=== PATIENT | female | born 1975 | race Two or more races ===

== ENCOUNTER 2025-07-12 01:52 | Emergency (ER) | payer BC, SELFPAY ==
[2025-07-12 02:44] VITALS: BP 128/90; PULSE 105; RESP 18; TEMP 36.8; O2SAT 97
[2025-07-12 02:45] VITALS: BMI 48.2
--- NOTE | 2025-07-12 02:56 | XR_ITS ---
Examination: CT abdomen and pelvis without contrast. Coronal 3-D reconstructions. Sagittal 2-D reconstructions. Date and time of exam: July 12, 2025, 0411 hours INDICATIONS: Right flank pain frequent urination onset today CTDI: vol (mGy): 19.9 DLP: (mGycm): 1215 Technique: Axial images of the abdomen have been obtained, 3 mm slice thickness Intravenous contrast material has not been administered. Low dose protocols were performed. One or more of the following dose reduction techniques were used; automated exposure control, adjustment of the mA and/or KV according to patient size, use of iterative reconstruction technique. Findings: Diffuse fatty infiltration throughout the liver, no focal liver or splenic lesions No gallstones No pancreatic or adrenal mass No renal or ureteral calculi, no hydronephrosis Aorta normal size Normal appendix Colonic diverticulosis Very minimal inflammatory change about sigmoid diverticula Contracted urinary bladder There appears to be a prostate but clinical correlation advised Osseous structures intact IMPRESSION: No renal or ureteral calculi, no hydronephrosis Normal appendix Colonic diverticulosis, with very minimal inflammatory change about the sigmoid diverticula No pelvic abscess
[2025-07-12 03:17] LABS: Collection Type, Urine Clean Catch
[2025-07-12 03:36] LABS: Amorphous Crystals,Urine Present (Absent); Bilirubin,Urine Negative (Negative); Blood,Urine 2+ (Negative); Clarity,Urine Turbid (Clear/Hazy); Color,Urine Yellow (Lt Yel-Yel); Culture Indicated,Urine Not Indicated; Glucose, Urine Negative (Negative); Ketones,Urine Negative (Negative); Leukocyte Esterase,Urine Negative (Negative); Nitrite,Urine Negative (Negative); PH,Urine 6.0 (5.0-7.0); Protein,Urine Trace (Neg - Trace); RBC,Urine 34 /hpf (0-3); Specific Gravity,Urine 1.031 (1.001-1.035); Squamous Epithelial Cell,Urine 3 /hpf (0-5); Urobilinogen,Urine Negative mg/dL (0.0-1.0); WBC,Urine 2 /hpf (0-5)
[2025-07-12 03:40] LABS: Amphetamine/Methamp Scrn,U Negative (Negative); Barbiturate Screen,Urine Negative (Negative); Benzodiazepines Screen,Urine Negative (Negative); Benzoylecgonine Screen, Ur Negative (Negative); Fentanyl Screen,Urine Negative (Negative); Opiate Screen,Urine Negative (Negative); THC Screen,Urine Negative (Negative)
--- NOTE | 2025-07-12 04:48 | EDNOTE_ITS ---
ED Female Urogenital RME/HPI General Chief complaint: Urogenital-Female Stated complaint: FREQUENCY URINATING Time Seen by Provider: 07/12/25 02:56 Arrival date/time: 07/12/25 01:52 50F with history of transgender MTF presents to ED with 2 days of R flank pain and some increased urinary frequency. No obvious dysuria. Limitations: no limitations Related Data Previous Rx's ?Medication ?Instructions ?Recorded amoxicillin 875 mg-potassium 1 tab PO BID 7 days #14 t abs 07/12/25 clavulanate 125 mg tablet tamsulosin 0.4 mg capsule 0.4 mg PO QDAY #14 caps 06/20 11/11 Allergies Allergy/AdvReac Type Severity Reaction Status Date / Time No Known Allergies Allergy Verified 07/12/25 01:54 Review of Systems Review of Systems Systems Reviewed: All systems reviewed, normal except as documented Genitourinary Genitourinary: Reports as per HPI, Reports difficulty voiding, Reports flank pain and Reports urinary urgency Past Medical History Social History SMOKING STATUS: Former smoker ED Exam General Limitations: Present no limitations General appearance: Present alert and in no apparent distress Head Head exam: Present atraumatic Neck Neck exam: Present normal inspection, full ROM and trachea midline Chest Chest inspection: Present normal inspection and symmetric chest wall rise Neurological Exam Neurological exam: Present alert and oriented X3 Psychiatric Psychiatric exam: Present normal affect and normal mood Skin Skin exam: Present warm, dry, intact and normal color Course Quality Measures none Orders Category Date Time Status CT abdomen pelvis wo con Stat Exams 07/12/25 02:56 Taken Drug Screen,Urine Stat Lab 07/12/25 02:56 Completed Urinalysis, C/S if Indicated Stat Lab 07/12/25 02:56 Completed Amoxicillin/Pot Clav 875 [Augmentin 875] Med 07/12/25 05:45 Once 1 tab PO X1 ONE Tamsulosin HCl [Flomax] Med 07/12/25 05:45 Once 0.4 mg PO X1 ONE Vital Signs Vital signs: Vital Signs Temperature 98.2 F 07/12/25 02:44 Pulse Rate 105 H 07/12/25 02:44 Respiratory Rate 18 07/12/25 02:44 Blood Pressure 128/90 H 07/12/25 02:44 Pulse Oximetry (%) 97 07/12/25 02:44 Oxygen Delivery Method Room Air 07/12/25 02:44 O2 at 97% on RA and WNLs Urogenital - Female MDM Narrative MDM Narrative:: 50F with history of transgender MTF presents to ED with 2 days of R flank pain and some increased urinary frequency. No obvious dysuria. Physical exam reveals well-appearing female. Patient is afebrile, calm, and alert. UA some blood. Tox screen neg. Telerad CT reveals diverticulitis, with radiologist noting possible testes. Patient confirms they are testes, but just shrunk is size due to estrogen therapy. But patient confirms she has not had any transitional surgeries. Patient would prefer to have trial of Flomax rather than go home with Green cath. Patient data External records reviewed:: None Clinical information provided by:: patient Social determinants that could affect healthcare access:: none Patient has the following chronic illnesses:: transgender How is presenting disease/condition affected by chronic disease/condition?: uneffected by Evaluation data The following diagnostics were reviewed and interpreted by me:: lab results and radiology exam(s) Lab and/or radiology exams considered but not ordered:: ordered Interpretation Summary: above Medications / Prescriptions Medications or Prescriptions considered but not ordered:: ordered Medication administrations:: Medication Administration History Amoxicillin/Clavulanate Potassium (Amoxicillin/Pot Clav 875 Tablet) 1 tab PO X1 ONE Stop: 07/12/25 05:46 Tamsulosin HCl (Tamsulosin Hcl 0.4 Mg Capsule) 0.4 mg PO X1 ONE Stop: 07/12/25 05:46 above Consultations Consultation(s) initiated? (list below): No Diagnosis Urogenital Female Differential Diagnosis: urinary tract infection, bacterial vaginosis, trichomoniasis, cervicitis, ovarian cyst, vaginitis, ruptured ovarian cyst, cyst of Bartholin's gland, cystitis, dysmenorrhea and other (kidney stone, urinary urgency and diverticulitis ) Most likely diagnosis given after review of the tests above:: urinary urgency and diverticulitis Admission Indicated Admission indicated?: not indicated Admission Request Was there a request for admission?: No Disposition Plan Disposition Plan: Discharge Discharge Attestation Discharge Attestation: The patient and all family members were given an opportunity to ask questions and understood the discharge instructions. Discharge instructions specifically effects, indications for sooner follow up or return to the emergency department, and the expected course of current diagnosis. Patient condition: Stable Discharge Plan Plan Patient Disposition: HOME (Self Care) Discharge Disposition comment: Stable Prescriptions/Referrals Prescriptions/Med Rec: New amoxicillin-pot clavulanate 875-125 mg tablet 1 tab PO BID 7 Days Qty: 14 0RF tamsulosin 0.4 mg capsule 0.4 mg PO QDAY Qty: 14 0RF Problem List Clinical Impression: Diverticulitis, Urinary urgency Patient/Caregiver Discharge Instructions Education Materials: ED Diverticulitis, ED Urinary Retention, Male, ED Urinary Retention, Female Additional Instructions: Please follow-up with PCP within 24-48 hours and return immediately if symptoms worsen. If urinary problems persists, can see PCP for referral to urology. Print Language: Hungarian Stand Alone Forms: Patient Portal Info Letter PA/[employer] Supervising Physician PA/EMMIE Supervising Physician: Dr. Cowart
[2025-07-12 04:55] VITALS: BP 121/78; PULSE 93; RESP 18; TEMP 36.5; O2SAT 98
--- NOTE | 2025-07-12 05:26 | PRELIM_ITS ---
CT scan of the abdomen and pelvis without intravenous contrast (axial sections with sagittal and coronal reformats) July 12, 2025 at 0411 hours Clinical History: Right flank pain; transgender. Comparison: No prior study is available for comparison. Findings: The lung bases are clear. The gallbladder, pancreas, spleen, kidneys and adrenals are unremarkable on this noncontrast study. Hepatomegaly. Liver steatosis. No evidence of bowel obstruction. No evidence of appendicitis. There is no mesenteric or retroperitoneal adenopathy. The urinary bladder is nondistended, limited evaluation. There is no free fluid or free air. The osseous structures are unremarkable. Focal thickening of the sigmoid colon associated with mild peripheral fat stranding, no perforation, no collections. Diverticulosis of the colon. There are probable testicles. Normal appearance of the prostate. Impression: Acute diverticulitis of the sigmoid colon. Hepatomegaly associated with liver steatosis, suspicious for steatohepatitis. There are probable testicles. Please, correlate clinically. Discussion Details: Results Discussed With : Dr. Cowart at 04:32 AM 07/12/2025 Report Electronically Signed By: Jerome Bustillos 07/12/2025 5:25:49 AM [EST]
[2025-07-12] MEDS: AMOXICILLIN/POT CLAV 875 TABLET 1 TAB PO (05:57)
[2025-07-12] MEDS: TAMSULOSIN HCL 0.4 MG CAPSULE PO (05:57)
[2025-07-12 06:10] VITALS: RESP 18
== END 2025-07-12 06:10 | disposition home or self-care (01) ==
LOC: SERX 06:54
PROVIDERS: Physician Assistant; Emergency Provider Emergency Medicine
DX: K57.92 Diverticulitis of intestine, part unspecified, without perforation or abscess without bleeding (principal); R39.15 Urgency of urination; F64.0 Transsexualism
CPT/HCPCS: 74176; 80307; 81001; 81025; 99283; A9270